=== PATIENT | male | born 1955 | race Caucasian/White ===

== ENCOUNTER 2022-01-23 22:51 | Emergency (ER) | payer OTHER, SELFPAY ==
--- NOTE | ~2022-01-23 | CT_ITS ---
EXAMINATION: CT CERVICAL SPINE WITHOUT CONTRAST; UNENHANCED CT OF THE HEAD. CLINICAL INFORMATION: Fell 10 days ago. COMPARISON: None TECHNIQUE: Routine unenhanced CT of the head with multiple coronal and sagittal reformatted images; routine unenhanced CT of the cervical spine with multiple coronal and sagittal reformatted images. This CT examination was performed using dose optimization techniques as appropriate, variously including the following: *Automated exposure control *Adjustment of mA and/or kV according to patient size (this includes techniques or standardized protocols for targeted exams where dose is matched to indication/reason for exam; i.e. extremities or head) *Use of iterative reconstruction technique DLP: 1162 mGy-cm FINDINGS: CT head: Mild diffuse commensurate prominence of ventricles and sulci is noted. Mild periventricular patchy hypodensities are noted. No intracranial hemorrhage, tumors or acute infarcts are identified. The orbits and globes are normal in appearance. No significant opacification of the visualized paranasal sinuses, mastoid air cells and middle ear cavities. CT cervical spine: No fractures or acute appearing subluxations are noted. Straightening of the normal cervical lordosis is noted. Prominent right parasagittal posterior endplate osteophytosis is present at C5-C6 and moderate multilevel anterior endplate osteophytosis of the cervical spine is visualized. No prevertebral fluid collections or soft tissue inflammatory changes noted. The thyroid is normal in appearance. The visualized lung apices are clear. CT/CT head/brain wo con IMPRESSION: Unenhanced CT head: *No acute intracranial abnormalities. Unenhanced CT of the cervical spine: *No acute abnormalities. *Chronic spondylosis as detailed above.
--- NOTE | ~2022-01-23 | CT_ITS ---
EXAMINATION: CT CERVICAL SPINE WITHOUT CONTRAST; UNENHANCED CT OF THE HEAD. CLINICAL INFORMATION: Fell 10 days ago. COMPARISON: None TECHNIQUE: Routine unenhanced CT of the head with multiple coronal and sagittal reformatted images; routine unenhanced CT of the cervical spine with multiple coronal and sagittal reformatted images. This CT examination was performed using dose optimization techniques as appropriate, variously including the following: *Automated exposure control *Adjustment of mA and/or kV according to patient size (this includes techniques or standardized protocols for targeted exams where dose is matched to indication/reason for exam; i.e. extremities or head) *Use of iterative reconstruction technique DLP: 1162 mGy-cm FINDINGS: CT head: Mild diffuse commensurate prominence of ventricles and sulci is noted. Mild periventricular patchy hypodensities are noted. No intracranial hemorrhage, tumors or acute infarcts are identified. The orbits and globes are normal in appearance. No significant opacification of the visualized paranasal sinuses, mastoid air cells and middle ear cavities. CT cervical spine: No fractures or acute appearing subluxations are noted. Straightening of the normal cervical lordosis is noted. Prominent right parasagittal posterior endplate osteophytosis is present at C5-C6 and moderate multilevel anterior endplate osteophytosis of the cervical spine is visualized. No prevertebral fluid collections or soft tissue inflammatory changes noted. The thyroid is normal in appearance. The visualized lung apices are clear. CT/CT cervical spine wo con IMPRESSION: Unenhanced CT head: *No acute intracranial abnormalities. Unenhanced CT of the cervical spine: *No acute abnormalities. *Chronic spondylosis as detailed above.
[2022-01-24 00:33] VITALS: BP 155/80; PULSE 61; RESP 14; TEMP 36.9; O2SAT 98; BMI 29.0
[2022-01-24 00:35] VITALS: BP 127/76; PULSE 61; RESP 16; TEMP 36.7; O2SAT 99
--- NOTE | 2022-01-24 00:44 | ED_ITS ---
HPI - Fall General Chief Complaint: Fall Stated Complaint: ? concussion; fall 10 days ago Time Seen by Provider: 01/24/22 00:44 Source: patient Mode of arrival: ambulatory Limitations: no limitations History of Present Illness HPI Narrative: Patient with history of cardiac disease on baby aspirin apparently had a mechanical fall on 01/12 while pushing the heavy machine to the truck slipped and fell hitting his head was wearing the helmet at that time has superficial abrasion to the forehead no loss of consciousness no seizures no nausea no vomiting for last 2 days patient will more confused and having some weak feeling in the head also complaining of mid neck pain no numbness or tingling in the hand no weakness no balance problem no fever no chills Related Data Previous Rx's Medication Instructions Recorded cyclobenzaprine 10 mg tablet 10 mg PO Q8H #20 tab 01/24/22 ibuprofen 600 mg tablet 600 mg PO Q6H PRN #20 tab 01/24/22 Allergies Allergy/AdvReac Type Severity Reaction Status Date / Time tramadol [TRAMADOL] Allergy Severe SYNCOPE Unverified 06/16/20 16:18 lisinopril [LISINOPRIL] Allergy Intermediate COUGH Unverified 06/16/20 16:18 simvastatin [SIMVASTATIN] Allergy Intermediate MUSCLE PAIN Unverified 06/16/20 16:18 Review of Systems Review of Systems: Yes all other systems are reviewed and are negative [facility], [facility] Social History Social History Advance Directives: No Physical Exam Vital Signs: Vital Signs: Last Vital Signs Temp 98.1 F 01/24/22 00:35 Pulse 61 01/24/22 00:35 Resp 16 01/24/22 00:35 BP 127/76 01/24/22 00:35 Pulse Ox 99 01/24/22 00:35 BMI result Body Mass Index 29.0 Appearance: Alert. Oriented X3. No acute distress. Eyes: PERRLA, No Nystagmus HEENT: Pharynx normal. Oral Mucosa moist Neck: Normal inspection. Neck supple. Diffuse paraspinal tenderness mid spine CVS: Normal heart rate and rhythm. Pulses normal. Respiratory: No respiratory distress. Equal air entry bilateral, no wheezing/rales/rhonchi Abdomen: Soft and nontender. Bowel sounds are present, no mass palpable, no CVA tenderness Skin: Skin warm and dry. Normal skin color. Normal skin turgor. Extremities: No lower extremity edema. No calf tenderness Neuro: Oriented X 3. No motor deficit. No sensory deficit.No cerebellar signs , cranial nerves II-XII intact MDM - Fall MDM Narrative Medical decision making narrative: Patient's CT scan of the head and C-spine negative for any acute will discharge patient home on ibuprofen and Flexeril likely patient has mild concussion syndrome Discharge Plan Discharge Clinical Impression: Concussion without loss of consciousness, Cervical sprain Patient Disposition: Home, Self-Care Instructions: Cervical Strain (ED), Head Injury (ED) Additional Instructions: Take medication for muscle relaxation and pain Report to the ER/PCP if not better or worsening of headache or neck pain or any focal weakness Prescriptions: New cyclobenzaprine 10 mg tablet 10 mg PO Q8H Qty: 20 0RF ibuprofen 600 mg tablet 600 mg PO Q6H PRN (Reason: pain) Qty: 20 0RF Interventions: ED Discharge Assessment Last Done: 01/24/22 02:43 Discharge Date/Time: 01/24/22 02:44
[2022-01-24] MEDS: Ibuprofen 600 MG TABLET PO (02:40)
[2022-01-24] MEDS: Cyclobenzaprine HCl 10 MG TABLET PO (02:40)
== END 2022-01-24 02:44 | disposition home or self-care (01) ==
PROVIDERS: Emergency Provider Internal Medicine; PCP Physician Assistant
DX: S06.0X0A Concussion without loss of consciousness, initial encounter (principal); S13.4XXA Sprain of ligaments of cervical spine, initial encounter; W01.0XXA Fall on same level from slipping, tripping and stumbling without subsequent striking against object, initial encounter; Y93.89 Activity, other specified; Y92.9 Unspecified place or not applicable; Y99.9 Unspecified external cause status
CPT/HCPCS: 70450; 72125; 99284

== ENCOUNTER 2022-05-01 12:48 | Emergency (ER) | payer OTHER, SELFPAY ==
[2022-05-01] VITALS (7 sets, daily range): BP systolic 150–199; BP diastolic 70–95; PULSE 54–64; RESP 14–18; TEMP 36.1–36.6; O2SAT 98–100; BMI 29.2
--- NOTE | ~2022-05-01 | CT_ITS ---
EXAMINATION: CT ANGIOGRAM HEAD CT ANGIOGRAM NECK CLINICAL INFORMATION: Reason for Exam Severe dizziness? Posterior circulation cvA COMPARISON: MRI of the brain without contrast 05/28/2015, CTA head without contrast 01/24/2022 TECHNIQUE: Initial noncontrast taping supervisor imaging of the head and neck was performed. Noncontrast head CT was also performed. Test bolus sequences followed by intravenous administration 70 mL of Omnipaque 350. Helical imaging was performed in the axial plane from the aortic arch to the skull vertex. Delayed postcontrast imaging of the head was also performed. The data was processed at the distribution engineering technologist's workstation for generation of MIP sequences. Angled MIPs and volume rendered reformatted images were also generated at an offline 3D workstation. Stenoses are assessed in accordance with NASCET criteria unless otherwise indicated. DLP: 2583 mGy-cm This CT examination was performed using dose optimization techniques as appropriate, variously including the following: *Automated exposure control. *Adjustment of mA and/or kV according to patient size (this includes techniques or standardized protocols for targeted exams where dose is matched to indication/reason for exam; i.e. extremities or head). *Use of iterative reconstruction technique. FINDINGS: CT Head: There is no evidence of acute intracranial hemorrhage or edematous territorial infarction. A few foci of hypoattenuation in the periventricular and deep white matter are consistent with mild microangiopathy. Guerra-white matter differentiation is preserved. The ventricles are normal in size and configuration. No evidence for obstructive hydrocephalus. No abnormal mass effect or midline shift. No extra-axial fluid collections. No pathologic intra-axial enhancement or regional oligemia. No acute soft tissue or osseous abnormalities. The mastoid air cells and paranasal sinuses are clear. CT Neck: The thyroid gland and remaining cervical soft tissues are within normal limits. Multilevel cervical spondylosis with suggestion of moderate to severe spinal canal stenosis at C5-C6 related to posterior disc osteophyte complex. CT Upper Chest: The visualized lung apices and upper mediastinum are within normal limits. Median sternotomy wires. Evidence of coronary artery bypass grafts. Neck CTA: Aortic Arch: Normal contour and caliber. Four vessel branching pattern with left vertebral artery arising directly from the arch between the left common carotid and left subclavian arteries. Great Vessel Origins: No significant stenosis of the branch origins. Right Common Carotid Artery: No focal stenosis or occlusion. Cervical Right Internal Carotid Artery: Normal opacification without focal stenosis or occlusion. Left Common Carotid Artery: No focal stenosis or occlusion. Cervical Left Internal Carotid Artery: Normal opacification without focal stenosis or occlusion. Cervical Right Vertebral Artery: Co-dominant. No focal stenosis or occlusion. Cervical Left Vertebral Artery: Co-dominant. No focal stenosis or occlusion. Brain CTA: Intracranial Internal Carotid Arteries: Calcific atherosclerotic disease of the intracranial internal carotid arteries without occlusion or flow-limiting stenosis. Right Anterior Cerebral Artery: Normal A1 segment. Normal opacification of the distal GINNY segments. Left Anterior Cerebral Artery: Normal A1 segment. Normal opacification of the distal GINNY segments. Anterior Communicating Artery: Normal. Right Middle Cerebral Artery: Normal M1 segment of the MCA without focal stenosis or occlusion. Normal arborization of the distal segments. Left Middle Cerebral Artery: Normal M1 segment of the MCA without focal stenosis or occlusion. Normal arborization of the distal segments. Right Vertebral Artery: Normal V4 segment. Left Vertebral Artery: Normal V4 segment. Basilar Artery: Normal without focal stenosis or occlusion. Normal appearance of the proximal superior cerebellar arteries. Right Posterior Cerebral Artery: Normal P1 segment. Normal opacification of the distal FOREST [employer]OLOG[employer] TE[employer]ER segments. Left Posterior Cerebral Artery: Normal P1 segment. Normal opacification of the distal FOREST [employer]OLOG[employer] TEACHER segments. Normal opacification of the superior sagittal, straight, transverse, and sigmoid sinuses. There is a large arachnoid granulation involving the distal left transverse sinus CT/CT angio head neck IMPRESSION: 1. No acute intracranial abnormality including hemorrhage, mass effect, hydrocephalus, or acute territorial edematous infarction. 2. No arterial high grade stenosis or large vessel occlusion in the head or neck.
[2022-05-01 20:11] LABS: Glucose, Whole Blood 171 mg/dL (60-115)
--- NOTE | 2022-05-01 21:00 | ED.DIZZY ---
HPI - Dizziness General Chief Complaint: Dizziness Stated Complaint: Headache Time Seen by Provider: 05/01/22 21:00 Source: patient Mode of arrival: ambulatory Limitations: no limitations History of Present Illness HPI Narrative: Patient history of coronary disease status post CABG was seen here for fall in 01/[address] head and C-spine negative was doing okay for last 4 days been feeling dizzy feels everything is spinning around unable to walk with increased nausea denies any headache tinnitus present in the right side no tremors no focal weakness Related Data Previous Rx's Medication Instructions Recorded cyclobenzaprine 10 mg tablet 10 mg PO Q8H #20 tabs 01/24/22 ibuprofen 600 mg tablet 600 mg PO Q6H PRN pain #20 tabs 01/24/22 meclizine 25 mg tablet 25 mg PO TID PRN dizziness #20 tabs 05/01/22 Allergies Allergy/AdvReac Type Severity Reaction Status Date / Time tramadol [TRAMADOL] Allergy Severe SYNCOPE Verified 05/01/22 14:31 lisinopril [LISINOPRIL] Allergy Intermediate COUGH Verified 05/01/22 14:32 simvastatin [SIMVASTATIN] Allergy Intermediate MUSCLE PAIN Verified 05/01/22 14:32 Review of Systems Review of Systems: Yes all other systems are reviewed and are negative [facility] Social History Social History Alcohol intake: never Patient Tobacco Use Status: Never used Tobacco Use of substances other than those prescribed or required for medical reasons: No Advance Directives: No Advance Directives Information Provided: No Physical Exam Vital Signs: Vital Signs: Last Vital Signs Temp 97.8 F 05/01/22 19:55 Pulse 64 05/01/22 22:00 Resp 18 05/01/22 22:00 BP 150/77 H 05/01/22 22:00 Pulse Ox 98 05/01/22 22:00 O2 Del Method 05/01/22 22:00 BMI result Body Mass Index 29.2 Appearance: Alert. Oriented X3. No acute distress. Eyes: PERRLA, No Nystagmus ENT: Pharynx normal. Oral Mucosa moist Neck: Normal inspection. Neck supple. CVS: Normal heart rate and rhythm. Pulses normal. Respiratory: No respiratory distress. Equal air entry bilateral, no wheezing/rales/rhonchi Abdomen: Soft and nontender. Bowel sounds are present, no mass palpable, no CVA tenderness Skin: Skin warm and dry. Normal skin color. Normal skin turgor. Extremities: No lower extremity edema. No calf tenderness Neuro: Oriented X 3. No motor deficit. No sensory deficit.No cerebellar signs , cranial nerves II-XII intact MDM - Dizziness MDM Narrative Medical decision making narrative: 3 Patient with vertigo clinically benign positional vertigo CTA head and neck negative for any acute occlusion patient feeling better after Valium and meclizine will discharge patient home Differential Diagnosis Differential diagnosis: Likely benign paroxysmal positional vertigo, vertebral basilar insufficiency and cerebrovascular accident Lab Data Attestation: I reviewed the patient's lab results. Result diagrams: 05/01/22 21:29 05/01/22 21:29 Labs: Lab Results 05/01/22 05/01/22 05/01/22 Range/Units 20:07 21:29 21:29 WBC 5.8 (4.8-10.8) X10*3/uL RBC 4.30 L (4.60-5.80) X10*6/uL Hgb 13.7 L (14.0-18.0) g/dl Hct 39.6 L (42.0-52.0) % MCV 92.1 (80.0-98.0) fL MCH 31.9 (27.0-33.0) pg MCHC 34.6 (31.0-36.0) g/dl RDW 12.5 (11.0-16.0) % Plt Count 127 L (160-400) X10*3/uL MPV 10.8 (9.4-12.4) fL Immature Gran % (Auto) 0.3 (0.0-0.4) % Neut % (Auto) 55.6 (45-73) % Lymph % (Auto) 31.7 (20-40) % [place] % (Auto) 7.1 (2-11) % Eos % (Auto) 5.0 H (0-4) % Baso % (Auto) 0.3 (0-2) % Lymph # (Auto) 1.8 (1.2-4.9) X10*3/uL [place] # (Auto) 0.4 (0.1-1.2) X10*3/uL Eos # (Auto) 0.3 (0.0-0.4) X10*3/uL Baso # (Auto) 0.0 (0.0-0.2) X10*3/uL Abs Immat Gran (auto) 0.02 (0.00-0.03) X10*3/uL Absolute Neuts (auto) 3.2 (2.0-8.3) x10*3/uL Absolute Nucleated RBC 0.000 (0.0-0.012) X10*3/uL Nucleated RBC % (auto) 0.0 (0.0-0.2) /100WBC PT 11.5 (10.0-13.1) SEC INR 1.0 (0.9-1.1) Sodium (135-145) mmol/L Potassium (3.3-5.1) mmol/L Chloride (96-108) mmol/L Carbon Dioxide (22-29) mmol/L Anion Gap (12-20) BUN (9-16) mg/dL Creatinine (0.5-1.4) mg/dL Estim Creat Clear Calc Estimated GFR POC Glucose 171 H (60-115) mg/dL Random Glucose (60-115) mg/dL Calcium (8.4-10.2) mg/dL Total Bilirubin (0.0-1.0) mg/dL AST (5-37) U/L ALT (0-40) U/L Alkaline Phosphatase (39-117) U/L Troponin I High Sens (<3.5-35.0) ng/L Total Protein (6.5-8.0) g/dL Albumin (3.5-5.0) g/dL 05/01/22 05/01/22 Range/Units 21:29 21:29 WBC (4.8-10.8) X10*3/uL RBC (4.60-5.80) X10*6/uL Hgb (14.0-18.0) g/dl Hct (42.0-52.0) % MCV (80.0-98.0) fL MCH (27.0-33.0) pg MCHC (31.0-36.0) g/dl RDW (11.0-16.0) % Plt Count (160-400) X10*3/uL MPV (9.4-12.4) fL Immature Gran % (Auto) (0.0-0.4) % Neut % (Auto) (45-73) % Lymph % (Auto) (20-40) % [place] % (Auto) (2-11) % Eos % (Auto) (0-4) % Baso % (Auto) (0-2) % Lymph # (Auto) (1.2-4.9) X10*3/uL [place] # (Auto) (0.1-1.2) X10*3/uL Eos # (Auto) (0.0-0.4) X10*3/uL Baso # (Auto) (0.0-0.2) X10*3/uL Abs Immat Gran (auto) (0.00-0.03) X10*3/uL Absolute Neuts (auto) (2.0-8.3) x10*3/uL Absolute Nucleated RBC (0.0-0.012) X10*3/uL Nucleated RBC % (auto) (0.0-0.2) /100WBC PT (10.0-13.1) SEC INR (0.9-1.1) Sodium 141 (135-145) mmol/L Potassium 4.0 (3.3-5.1) mmol/L Chloride 101 (96-108) mmol/L Carbon Dioxide 32 H (22-29) mmol/L Anion Gap 12 (12-20) BUN 16 (9-16) mg/dL Creatinine 1.29 (0.5-1.4) mg/dL Estim Creat Clear Calc 58.6 Estimated GFR 56 POC Glucose (60-115) mg/dL Random Glucose 198 H (60-115) mg/dL Calcium 9.4 (8.4-10.2) mg/dL Total Bilirubin 0.8 (0.0-1.0) mg/dL AST 24 (5-37) U/L ALT 27 (0-40) U/L Alkaline Phosphatase 61 (39-117) U/L Troponin I High Sens 5.7 (<3.5-35.0) ng/L Total Protein 7.3 (6.5-8.0) g/dL Albumin 4.3 (3.5-5.0) g/dL Discharge Plan Discharge Clinical Impression: Benign paroxysmal positional vertigo Patient Disposition: Home, Self-Care Instructions: Benign Paroxysmal Positional Vertigo (ED) Additional Instructions: Care and cautions and advised Take medication for dizziness as prescribed Follow with PCP Prescriptions: New meclizine 25 mg tablet 25 mg PO TID PRN (Reason: dizziness) Qty: 20 0RF No Action cyclobenzaprine 10 mg tablet 10 mg PO Q8H Qty: 20 0RF ibuprofen 600 mg tablet 600 mg PO Q6H PRN (Reason: pain) Qty: 20 0RF Interventions: ED Discharge Assessment Last Done: 05/01/22 23:33 Discharge Date/Time: 05/01/22 23:37
--- NOTE | 2022-05-01 21:23 | ECG_ITS ---
Test Reason : DIZZINESS Blood Pressure : / mmHG Vent. Rate : 059 BPM Atrial Rate : 059 BPM P-R Int : 166 ms QRS Dur : 084 ms QT Int : 442 ms P-R-T Axes : 024 -17 026 degrees QTc Int : 437 ms Sinus bradycardia Otherwise normal ECG When compared with ECG of 05-OCT-2018 21:22, Vent. rate has decreased BY 45 BPM Nonspecific T wave abnormality no longer evident in Lateral leads Referred By: Brandon Sawnson Electronically Signed By:JENNIFER DOE MD
[2022-05-01 21:34] LABS: MANUAL DIFF FLAG NO
[2022-05-01] MEDS: Meclizine HCl 25 MG TABLET 50 MG PO (21:45)
[2022-05-01] MEDS: diazePAM 10 MG/2 ML CARTRIDGE 5 MG IVPUSH (21:46)
[2022-05-01 21:48] LABS: Basophils Percent Auto 0.3 % (0-2); Eosinophils Absolute Auto 0.3 X10*3/uL (0.0-0.4); Hematocrit 39.6 % (42.0-52.0); Hemoglobin 13.7 g/dl (14.0-18.0); Imm Gran Abs Auto 0.02 X10*3/uL (0.00-0.03); Imm Gran Pct Auto 0.3 % (0.0-0.4); Lymphocytes Absolute Auto 1.8 X10*3/uL (1.2-4.9); Lymphocytes Percent Auto 31.7 % (20-40); Mean Corpuscular HGB Conc 34.6 g/dl (31.0-36.0); Mean Corpuscular Hemoglobin 31.9 pg (27.0-33.0); Mean Corpuscular Volume 92.1 fL (80.0-98.0); Mean Platelet Volume 10.8 fL (9.4-12.4); Monocytes Absolute Auto 0.4 X10*3/uL (0.1-1.2); Monocytes Percent Auto 7.1 % (2-11); Neutrophils Absolute Auto 3.2 x10*3/uL (2.0-8.3); Neutrophils Percent Auto 55.6 % (45-73); Platelet Count 127 X10*3/uL (160-400); Red Cell Distribution Width 12.5 % (11.0-16.0); White Blood Count 5.8 X10*3/uL (4.8-10.8)
[2022-05-01 21:49] LABS: Prothrombin Time 11.5 SEC (10.0-13.1)
[2022-05-01 21:52] LABS: Alanine Aminotransferase 27 U/L (0-40); Albumin Level 4.3 g/dL (3.5-5.0); Alkaline Phosphatase 61 U/L (39-117); Anion Gap 12 (12-20); Aspartate Amino Transferase 24 U/L (5-37); Bilirubin Total 0.8 mg/dL (0.0-1.0); Blood Urea Nitrogen 16 mg/dL (9-16); Calcium 9.4 mg/dL (8.4-10.2); Carbon Dioxide 32 mmol/L (22-29); Chloride 101 mmol/L (96-108); Creatinine Clr Calc Pharmacy 58.6; Estimated Glomerular Filt Rate 56; Glucose Random 198 mg/dL (60-115); Sodium 141 mmol/L (135-145); Total Protein 7.3 g/dL (6.5-8.0)
[2022-05-01 21:58] LABS: Troponin-I High Sensitivity 5.7 ng/L (<3.5-35.0)
[2022-05-01] MEDS: iohexoL 350 MG/ML 100 ML INFUS..BTL IV (22:18)
== END 2022-05-01 23:37 | disposition home or self-care (01) ==
PROVIDERS: Emergency Provider Internal Medicine; PCP Physician Assistant
DX: H81.10 Benign paroxysmal vertigo, unspecified ear (principal)
CPT/HCPCS: 36415; 70496; 70498; 80053; 82947; 84484; 85025; 85610; 93005; 96374; 99284; 99285; J3360; Q9967

== ENCOUNTER 2025-03-05 12:31 | Emergency (ER) | payer OTHER, SELFPAY ==
--- NOTE | ~2025-03-05 | XR_ITS ---
EXAMINATION: XR CHEST 2 VIEWS HISTORY: chest pain, sob COMPARISON: Comparison is made with the prior examination dated 10/05/2018. FINDINGS: PA and lateral views of the chest are submitted. The lungs are expanded and clear. There is no pleural effusion, pneumothorax, or pulmonary vascular congestion. The heart is normal in size. The patient is status post median sternotomy and CABG. There is mild degenerative disc disease of the spine. There are surgical clips in right upper quadrant. XR/XR chest 2V IMPRESSION: No acute cardiopulmonary abnormality. Electronically signed by: Hernan Jordan MD 03/05/2025 01:33 PM EDT
--- NOTE | 2025-03-05 12:35 | ECG_ITS ---
Test Reason : cp Blood Pressure : */* mmHG Vent. Rate : 82 BPM Atrial Rate : 82 BPM P-R Int : 162 ms QRS Dur : 78 ms QT Int : 370 ms P-R-T Axes : 12 -16 0 degrees QTcB Int : 432 ms Normal sinus rhythm Cannot rule out Anterior infarct , age undetermined Abnormal ECG When compared with ECG of 01-May-2022 21:26, No significant change was found Referred By: Jacquelyn Walter Electronically Signed By: UMU FELIZ
[2025-03-05 12:47] VITALS: BP 136/73; PULSE 85; RESP 18; TEMP 36.3; O2SAT 98; BMI 28.5
--- NOTE | 2025-03-05 12:48 | ED.CHESTPAIN ---
HPI - Chest Pain General Chief Complaint: Chest Pain Stated Complaint: Chest Pain SOB Etc Time Seen by Provider: 03/05/25 21:20 Source: patient Limitations: no limitations History of Present Illness ED Provider: April Hayes PA-C HPI narrative: 69-year-old male with a history of hypertension, hyperlipidemia, diabetes, known coronary artery disease presents with chest pain x3 days. Patient states he has been having intermittent left anterior chest discomfort, when it presents he states it is sharp, brief, and nonradiating. Patient states his doctor changed his blood pressure medication, he is now on carvedilol. He has been on this new medication for a week. He is experiencing dizziness when he stands up from bending over. Patient states this was a preceding symptom he had with his prior heart attack. Denies recent cough or cold symptoms. Denies recent activity we could have strained his chest wall, no trauma. Related Data Previous Rx's ?Medication ?Instructions ?Recorded cyclobenzaprine 10 mg tablet 10 mg PO Q8H #20 tabs 01/24/22 ibuprofen 600 mg tablet 600 mg PO Q6H PRN pain #20 tabs 01/24/22 meclizine 25 mg tablet 25 mg PO TID PRN dizziness #20 tabs 05/01/22 Allergies Allergy/AdvReac Type Severity Reaction Status Date / Time tramadol [TRAMADOL] Allergy Severe SYNCOPE Verified 03/05/25 12:51 lisinopril [LISINOPRIL] Allergy Intermediate COUGH Verified 03/05/25 12:51 simvastatin [SIMVASTATIN] Allergy Intermediate MUSCLE PAIN Verified 03/05/25 12:51 Review of Systems Review of Systems: Yes all other systems are reviewed and are negative Constitutional: Constitutional: Denies fatigue, Denies fever(s) and Denies headache(s) ENT: Reports dizziness and Denies headache(s) Cardiovascular: Cardiovascular: Reports chest pain and Denies dyspnea Respiratory: Respiratory: Denies cough and Denies dyspnea Gastrointestinal: Gastrointestinal: Denies abdominal pain, Denies nausea and Denies vomiting Neurologic: Reports dizziness and Denies headache(s) Endocrine: Endocrine: Denies fatigue [facility] Past Medical History Attestation statement: The following information was validated with the patient. Social History Social History Alcohol intake: never Patient Tobacco Use Status: Never used Tobacco Smoked in Last 30 Days: No Use of substances other than those prescribed or required for medical reasons: No Advance Directives: No Advance Directives Information Provided: Yes Do you have a plan to hurt others: No Plan Physical Exam Vital Signs: Vital Signs: Last Vital Signs Temp 98.1 F 03/05/25 23:34 Pulse 75 03/05/25 23:34 Resp 13 03/05/25 23:34 BP 173/90 H 03/05/25 23:34 Pulse Ox 99 03/05/25 23:34 O2 Del Method Room Air 03/05/25 23:34 BMI result Body Mass Index 28.5 Const: Other: Alert well-appearing Orientation/consciousness: patient oriented x3 Resp: Effort & Inspection: normal respiratory effort Cardio: Other: normal peripheral perfusion Skin: Other: warm dry no rash Neuro: General: patient oriented x3, gait normal, no focal motor deficits and CN's II-XI intact bilaterally Psych: Other: cooperative Course Course Course Narrative: 03/05/25 1248 SAGAR Treviño This is a Rapid Medical Examination (RME) performed by Amparo Walter PA-C in triage. Full HPI, ROS, assessment and treatment plan per primary provider in the Main ED. Hx: 69 yo M hx TX requiring triple bypass (2017) here w/ non radiating chest pain, sob, light headedness x5 days. ambulating up his stairs seems to make his symtpoms worse. reports similar sx w/ TX. no hx asthma, COPD. on baby aspirin daily. PE/vitals: well appearing, vitals stable. Plan: labs, ekg, cxr Medical Decision Making Medical Decision Making [facility] Narrative: 69-year-old male with a history of hypertension, hyperlipidemia, diabetes, known coronary artery disease presents with chest pain x3 days. Patient states he has been having intermittent left anterior chest discomfort, when it presents he states it is sharp, brief, and nonradiating. Patient states his doctor changed his blood pressure medication, he is now on carvedilol. He has been on this new medication for a week. He is experiencing dizziness when he stands up from bending over. Patient states this was a preceding symptom he had with his prior heart attack. Denies recent cough or cold symptoms. Denies recent activity we could have strained his chest wall, no trauma. problem: Known coronary artery disease History: Per patient I have considered the following differential diagnoses: Orthostasis, anemia, electrolyte abnormality, dehydration, ACS, chest wall strain, costochondritis Plan: ACS was considered, the patient has known coronary artery disease, although his presentation today is not typical. Screening labs including 2 cardiac enzymes EKG and chest x-ray were obtained. The patient has no infectious signs symptoms to account for his discomfort. He also has no mechanism of injury to suggest chest wall strain. In regard to the dizziness, it sounds as if he is orthostatic. I advised to have discussion with the his primary care provider about the new addition of the carvedilol. To note he is not hypotensive. I have independently reviewed the following tests: Labs: No leukocytosis, not anemic, no electrolyte abnormality, creatinine at baseline, troponin x2 are negative EKG: Normal sinus rhythm, rate 82, no ischemic changes or ectopy when compared to prior study, QTC 432 Chest x-ray: XR/XR chest 2V IMPRESSION: No acute cardiopulmonary abnormality. Lab Data 03/05/25 13:09 03/05/25 13:09 Labs: Lab Results 03/05/25 03/05/25 Range/Units 13:09 20:52 WBC 5.2 (4.8-10.8) X10*3/uL RBC 4.31 L (4.60-5.80) X10*6/uL Hgb 13.6 L (14.0-18.0) g/dl Hct 39.0 L (42.0-52.0) % MCV 90.5 (80.0-98.0) fL MCH 31.6 (27.0-33.0) pg MCHC 34.9 (31.0-36.0) g/dl RDW 12.2 (11.0-16.0) % Plt Count 144 L (160-400) X10*3/uL MPV 10.9 (9.4-12.4) fL Immature Gran % (Auto) 0.2 (0.0-0.4) % Neut % (Auto) 58.6 (45-73) % Lymph % (Auto) 28.9 (20-40) % Ellis % (Auto) 7.4 (2-11) % Eos % (Auto) 4.5 H (0-4) % Baso % (Auto) 0.4 (0-2) % Lymph # (Auto) 1.5 (1.2-4.9) X10*3/uL Ellis # (Auto) 0.4 (0.1-1.2) X10*3/uL Eos # (Auto) 0.2 (0.0-0.4) X10*3/uL Baso # (Auto) 0.0 (0.0-0.2) X10*3/uL Abs Immat Gran (auto) 0.01 (0.00-0.03) X10*3/uL Absolute Neuts (auto) 3.0 (2.0-8.3) x10*3/uL Absolute Nucleated RBC 0.000 (0.0-0.012) X10*3/uL Nucleated RBC % (auto) 0.0 (0.0-0.2) /100WBC Sodium 143 (135-145) mmol/L Potassium 3.5 (3.3-5.1) mmol/L Chloride 106 (96-108) mmol/L Carbon Dioxide 33 H (22-29) mmol/L Anion Gap 8 L (12-20) BUN 24 H (9-16) mg/dL Creatinine 1.25 (0.5-1.4) mg/dL Estim Creat Clear Calc 57.3 Estimated GFR 57 Random Glucose 163 H (60-115) mg/dL Calcium 9.8 (8.4-10.2) mg/dL Magnesium 1.8 (1.6-2.6) mg/dL Total Bilirubin 0.6 (0.0-1.0) mg/dL AST 42 H (5-37) U/L ALT 43 H (0-40) U/L Alkaline Phosphatase 74 (39-117) U/L Troponin I High Sens < 2.7 2.7 (<3.5-35.0) ng/L Total Protein 7.4 (6.5-8.0) g/dL Albumin 4.4 (3.5-5.0) g/dL Lipase 61 (8-78) U/L Discharge Plan Discharge Clinical Impression: Chest pain, Dizziness Patient Disposition: Home, Self-Care Instructions: Dizziness (ED), Noncardiac Chest Pain (ED) Additional Instructions: all of your screening labs were normal, we obtained 2 cardiac enzymes they were completely negative. There were no concerning changes on the EKG in the chest x-ray is clear. In regard to the dizziness, this is likely secondary to the new blood pressure medication you are taking, it can cause transient drop in your blood pressure causing the dizziness, this is called orthostasis. Be sure to maintain proper hydration throughout the day, consuming up to 2-3 L of water daily. You should also follow up with your primary care provider to discuss your symptoms. Call tomorrow to make an appointment. Prescriptions: No Action cyclobenzaprine 10 mg tablet 10 mg PO Q8H Qty: 20 0RF ibuprofen 600 mg tablet 600 mg PO Q6H PRN (Reason: pain) Qty: 20 0RF meclizine 25 mg tablet 25 mg PO TID PRN (Reason: dizziness) Qty: 20 0RF Interventions: ED Discharge Assessment Last Done: 03/05/25 23:34 Discharge Date/Time: 03/05/25 23:38 Print Language: Mongolian
[2025-03-05 13:17] LABS: MANUAL DIFF FLAG NO
[2025-03-05 13:40] LABS: Alanine Aminotransferase 43 U/L (0-40); Albumin Level 4.4 g/dL (3.5-5.0); Alkaline Phosphatase 74 U/L (39-117); Anion Gap 8 (12-20); Aspartate Amino Transferase 42 U/L (5-37); Bilirubin Total 0.6 mg/dL (0.0-1.0); Blood Urea Nitrogen 24 mg/dL (9-16); Calcium 9.8 mg/dL (8.4-10.2); Carbon Dioxide 33 mmol/L (22-29); Chloride 106 mmol/L (96-108); Creatinine Clr Calc Pharmacy 57.3; Estimated Glomerular Filt Rate 57; Glucose Random 163 mg/dL (60-115); Lipase 61 U/L (8-78); Magnesium 1.8 mg/dL (1.6-2.6); Potassium 3.5 mmol/L (3.3-5.1); Sodium 143 mmol/L (135-145); Total Protein 7.4 g/dL (6.5-8.0)
[2025-03-05 14:17] LABS: Troponin-I High Sensitivity < 2.7 ng/L (<3.5-35.0)
[2025-03-05 15:49] LABS: Basophils Percent Auto 0.4 % (0-2); Eosinophils Absolute Auto 0.2 X10*3/uL (0.0-0.4); Eosinophils Percent Auto 4.5 % (0-4); Hemoglobin 13.6 g/dl (14.0-18.0); Imm Gran Abs Auto 0.01 X10*3/uL (0.00-0.03); Imm Gran Pct Auto 0.2 % (0.0-0.4); Lymphocytes Absolute Auto 1.5 X10*3/uL (1.2-4.9); Lymphocytes Percent Auto 28.9 % (20-40); Mean Corpuscular HGB Conc 34.9 g/dl (31.0-36.0); Mean Corpuscular Hemoglobin 31.6 pg (27.0-33.0); Mean Corpuscular Volume 90.5 fL (80.0-98.0); Mean Platelet Volume 10.9 fL (9.4-12.4); Monocytes Absolute Auto 0.4 X10*3/uL (0.1-1.2); Monocytes Percent Auto 7.4 % (2-11); Neutrophils Percent Auto 58.6 % (45-73); Platelet Count 144 X10*3/uL (160-400); Red Blood Count 4.31 X10*6/uL (4.60-5.80); Red Cell Distribution Width 12.2 % (11.0-16.0); White Blood Count 5.2 X10*3/uL (4.8-10.8)
[2025-03-05 20:18] VITALS: BP 167/91; PULSE 74; RESP 18; TEMP 36.1; O2SAT 96
--- OUTSIDE RECORDS SUMMARY | 2025-03-05 20:23 | XMS_ITS | Patient Health Record ---
Author Organization [facility] D[facility] camp[facility] Billing Info Address [address] [place], [place] [id number] Care Team Providers Care Principal Ios Developer Name Role Phone JOHN HERNANDEZ Unavailable [phone] Allergies Allergen (clinical drug ingredient) Drug/Non Drug Allergy documented on EMR Reaction Allergy Type Onset Date Status lisinopril Lisinopril Unknown Drug Allergy Activ e tramadol Tramadol HCl Unknown Drug Allergy Acti ve Reason For Referral No Information Medications Medication SIG (Take, Route, Frequency, Duration) Notes Start Date End Date Status Lasix 20 MG 1 tablet Orally Once a day Active Metoprolol Tartrate 50 MG 1 tablet with food Orally Twice a day Active Effexor XR 37.5 MG 1 capsule with food Orally Once a day Active Plavix 75 MG 1 tablet Orally Once a day Active Potassium Chloride 20 MEQ 1 packet with food Orally Once a day Active Metformin HCl 500 MG 1 tablet with meals Orally Twice a day Active Pepcid 20 MG 1 tablet at bedtime Orally Once a day Active Losartan Potassium 50 MG 1 tablet Orally Once a day Active Social History Tobacco Use: Social History Observation Description Date Details (start date - stop date) Never Smoker NA - NA Tobacco Status: Question Answer Notes Patient is a never smoker Problems Problem Type SNOMED Code ICD Code Onset Dates Problem Status W/U Status Risk Notes Problem [id number] 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
[2025-03-05 21:16] LABS: Troponin-I High Sensitivity 2.7 ng/L (<3.5-35.0)
[2025-03-05 22:00] VITALS: BP 173/90; PULSE 75; RESP 13; TEMP 36.7; O2SAT 99
[2025-03-05 23:34] VITALS: BP 173/90; PULSE 75; RESP 13; TEMP 36.7; O2SAT 99
== END 2025-03-05 23:38 | disposition home or self-care (01) ==
PROVIDERS: Physician Assistant Medical; Emergency Provider Emergency Medicine; PCP Physician Assistant
DX: R07.89 Other chest pain (principal); R06.02 Shortness of breath; R42 Dizziness and giddiness; R94.31 Abnormal electrocardiogram [ECG] [EKG]; Z79.899 Other long term (current) drug therapy
CPT/HCPCS: 36415; 71046; 80053; 83690; 83735; 84484; 85025; 93005; 99283; 99284

== ENCOUNTER → 2025-03-05 12:35 | Outpatient (BNV) | payer OTHER, SELFPAY | PROVIDERS: Emergency Provider Emergency Medicine; PCP Physician Assistant; Visit Provider Internal Medicine | DX: R94.31 Abnormal electrocardiogram [ECG] [EKG] (principal); R07.9 Chest pain, unspecified | CPT/HCPCS: 93010 ==

== ENCOUNTER → 2025-03-05 12:49 | Outpatient (BNV) | payer OTHER, SELFPAY | PROVIDERS: PCP Physician Assistant; Visit Provider Radiology Diagnostic Radiology | DX: R07.9 Chest pain, unspecified (principal); R06.02 Shortness of breath | CPT/HCPCS: 71046 ==